=== PATIENT | female | born 1985 | race Caucasian/White ===

== ENCOUNTER 2018-03-21 08:00 | Outpatient (CLI) | payer BC | END 2018-03-21 23:59 | LOC: LAB.R 08:00 | PROVIDERS: ATTEND Nurse Practitioner Gerontology | DX: R10.9 Unspecified abdominal pain (principal); K92.1 Melena | CPT/HCPCS: 83013 ==

== ENCOUNTER 2018-12-19 08:00 | Outpatient (CLI) | payer BC ==
[2018-12-19 12:15] LABS: BASOPHILS # (AUTO) 0.1 10^3/uL (0.0-0.1); BASOPHILS % (AUTO) 1.4 %; EOSINOPHILS # (AUTO) 0.1 10^3/uL (0.0-0.7); EOSINOPHILS % (AUTO) 1.7 %; HGB - HEMOGLOBIN 12.8 g/dL (12.0-16.0); LYMPHOCYTES # (AUTO) 1.6 10^3/uL (1.5-3.5); LYMPHOCYTES % (AUTO) 45.4 %; MEAN CORPUSCULAR HEMOGLOBIN 31.3 pg (27.0-31.0); MEAN CORPUSCULAR VOLUME 94.9 fL (81.0-99.0); MEAN PLATELET VOLUME 9.7 fL (7.9-10.8); MONOCYTES # (AUTO) 0.5 10^3/uL (0.0-1.0); MONOCYTES % (AUTO) 13.3 %; NEUTROPHILS # (AUTO) 1.4 10^3/uL (1.5-6.6); NEUTROPHILS % (AUTO) 38.2 %; PLT - PLATELET COUNT 213 10^3/uL (130-450); RED BLOOD COUNT 4.09 10^6/uL (4.20-5.40); RED CELL DISTRIBUTION WIDTH 11.9 % (12.0-15.0); WHITE BLOOD COUNT 3.6 x10^3/uL (4.8-10.8)
[2018-12-19 14:09] LABS: % IRON SATURATION 23 % (20-50); ALBUMIN 4.3 g/dL (3.2-5.5); ALBUMIN/GLOBULIN RATIO 1.8 (1.0-2.2); ALKALINE PHOSPHATASE 37 IU/L (42-121); ALT ALANINE AMINOTRANSFERASE 16 IU/L (10-60); AST ASPARTATE AMINOTRANSFERASE 17 IU/L (10-42); BILIRUBIN,TOTAL 0.8 mg/dL (0.2-1.0); BUN - BLOOD UREA NITROGEN 11 mg/dL (6-20); CALCIUM 9.3 mg/dL (8.5-10.3); CARBON DIOXIDE - CO2 25 mmol/L (21-32); CHLORIDE 102 mmol/L (101-111); CHOL/HDL RATIO 3.2 (<4.4); CHOLESTEROL 201 mg/dL; CREATININE 0.6 mg/dL (0.4-1.0); FERRITIN 20.6 ng/mL (11.0-306.8); GFR - MDRD 114 (>89); GLUCOSE 88 mg/dL (70-100); HDL CHOLESTEROL 62 mg/dL; IRON 69 ug/dL (28-170); LDL CHOLESTEROL,CALCULATED 128 mg/dL; LDL/HDL RATIO 2.1 (<4.4); SODIUM 136 mmol/L (135-145); TOTAL IRON BINDING CAPACITY 297 ug/dL (250-450); TOTAL PROTEIN 6.7 g/dL (6.7-8.2); TRANSFERRIN 212 mg/dL (192-382); VLDL CHOLESTEROL 11 mg/dL
== END 2018-12-19 23:59 | disposition home or self-care (01) ==
LOC: LAB.N 08:00
PROVIDERS: ATTEND Nurse Practitioner Gerontology
DX: Z13.9 Encounter for screening, unspecified (principal)
CPT/HCPCS: 36415; 80053; 80061; 82306; 82607; 82728; 83540; 83721; 84443; 84466; 85025

== ENCOUNTER 2021-05-26 08:00 | Outpatient (CLI) | payer BC, OTHER ==
[2021-05-26 21:20] LABS: BASOPHILS % (AUTO) 0.8 %; EOSINOPHILS # (AUTO) 0.1 10^3/uL (0.0-0.7); EOSINOPHILS % (AUTO) 1.6 %; HCT - HEMATOCRIT 37.1 % (37.0-47.0); HGB - HEMOGLOBIN 12.6 g/dL (12.0-16.0); LYMPHOCYTES # (AUTO) 1.6 10^3/uL (1.5-3.5); LYMPHOCYTES % (AUTO) 30.6 %; MEAN CORPUSCULAR VOLUME 94.2 fL (81.0-99.0); MEAN PLATELET VOLUME 10.1 fL (7.9-10.8); MONOCYTES # (AUTO) 0.5 10^3/uL (0.0-1.0); MONOCYTES % (AUTO) 9.1 %; NEUTROPHILS % (AUTO) 57.7 %; PLT - PLATELET COUNT 275 10^3/uL (130-450); RED BLOOD COUNT 3.94 10^6/uL (4.20-5.40); RED CELL DISTRIBUTION WIDTH 11.9 % (12.0-15.0); WHITE BLOOD COUNT 5.2 x10^3/uL (4.8-10.8)
[2021-05-26 21:28] LABS: ALBUMIN 4.5 g/dL (3.2-5.5); ALBUMIN/GLOBULIN RATIO 1.7 (1.0-2.2); BILIRUBIN,TOTAL 1.2 mg/dL (0.2-1.0); CALCIUM 9.4 mg/dL (8.5-10.3); CREATININE 0.5 mg/dL (0.4-1.0); POTASSIUM 4.3 mmol/L (3.5-5.0); TOTAL PROTEIN 7.2 g/dL (6.7-8.2)
== END 2021-05-26 23:59 | disposition home or self-care (01) ==
LOC: LAB.N 08:00
PROVIDERS: ATTEND Family Medicine
DX: R00.2 Palpitations (principal)
CPT/HCPCS: 36415; 80053; 84484; 85025; 85651

== ENCOUNTER 2021-10-28 13:35 | Outpatient (CLI) | payer OTHER ==
[2021-10-28 17:56] LABS: BASOPHILS # (AUTO) 0.1 10^3/uL (0.0-0.1); EOSINOPHILS # (AUTO) 0.3 10^3/uL (0.0-0.7); EOSINOPHILS % (AUTO) 4.8 %; HCT - HEMATOCRIT 38.3 % (37.0-47.0); HGB - HEMOGLOBIN 12.7 g/dL (12.0-16.0); LYMPHOCYTES # (AUTO) 1.5 10^3/uL (1.5-3.5); LYMPHOCYTES % (AUTO) 28.7 %; MEAN CORPUSCULAR HEMOGLOBIN 31.2 pg (27.0-31.0); MEAN CORPUSCULAR HGB CONC 33.2 g/dL (32.0-36.0); MEAN CORPUSCULAR VOLUME 94.1 fL (81.0-99.0); MEAN PLATELET VOLUME 10.3 fL (7.9-10.8); MONOCYTES # (AUTO) 0.5 10^3/uL (0.0-1.0); MONOCYTES % (AUTO) 9.4 %; NEUTROPHILS # (AUTO) 2.9 10^3/uL (1.5-6.6); NEUTROPHILS % (AUTO) 55.9 %; PLT - PLATELET COUNT 253 10^3/uL (130-450); RED BLOOD COUNT 4.07 10^6/uL (4.20-5.40); RED CELL DISTRIBUTION WIDTH 11.9 % (12.0-15.0); WHITE BLOOD COUNT 5.2 x10^3/uL (4.8-10.8)
[2021-10-28 18:03] LABS: CHOL/HDL RATIO 3.6 (<4.4); CHOLESTEROL 198 mg/dL; HDL CHOLESTEROL 55 mg/dL; LDL CHOLESTEROL,CALCULATED 129 mg/dL; LDL/HDL RATIO 2.3 (<4.4); TRIGLYCERIDES 72 mg/dL; VLDL CHOLESTEROL 14 mg/dL
[2021-10-28 18:15] LABS: THYROID STIMULATING HORMONE 2.27 uIU/mL (0.34-5.60)
== END 2021-10-28 13:36 | disposition home or self-care (01) ==
LOC: LAB.N 13:35
PROVIDERS: ATTEND Nurse Practitioner
DX: R53.83 Other fatigue (principal); Z13.220 Encounter for screening for lipoid disorders
CPT/HCPCS: 36415; 80061; 83721; 84443; 85025

== ENCOUNTER 2023-07-19 08:00 | Outpatient (CLI) | payer OTHER ==
[2023-07-19 16:31] LABS: BILIRUBIN,URINE NEGATIVE (NEGATIVE); GLUCOSE, URINE (UA) NEGATIVE (NEGATIVE); KETONES,URINE (UA) 15 mg/dL (NEGATIVE); LEUKOCYTE ESTERASE, URINE NEGATIVE (NEGATIVE); NITRITE,URINE NEGATIVE (NEGATIVE); OCCULT BLOOD,URINE TRACE-INTA (NEGATIVE); PROTEIN,URINE NEGATIVE (NEGATIVE); UROBILINOGEN,URINE 0.2 (NORMAL) E.U./dL (NORMAL)
[2023-07-19 16:34] LABS: CLARITY,URINE CLOUDY (CLEAR)
[2023-07-19 16:40] LABS: AMORPHOUS SEDIMENT,UR Marked /LPF; BACTERIA,URINE Rare /HPF (None Seen); RBC,URINE 0-5 /HPF (0-5); SQUAMOUS EPITHELIAL CELL,UR RARE Squamous (<= Few); WBC,URINE 0-3 /HPF (0-5)
[2023-07-19 16:41] LABS: CRYSTALS,URINE 0-2 Calcium Oxalate /LPF
== END 2023-07-19 23:59 | disposition home or self-care (01) ==
LOC: LAB.WC 08:00
PROVIDERS: ATTEND Nurse Practitioner
DX: Z34.00 Encounter for supervision of normal first pregnancy, unspecified trimester (principal)
CPT/HCPCS: 81001; 87086

== ENCOUNTER 2023-07-30 17:06 | Outpatient (CLI) | payer OTHER ==
[2023-07-30 20:36] LABS: BASOPHILS % (AUTO) 0.5 %; EOSINOPHILS % (AUTO) 0.6 %; HCT - HEMATOCRIT 36.2 % (37.0-47.0); HGB - HEMOGLOBIN 11.9 g/dL (12.0-16.0); LYMPHOCYTES # (AUTO) 1.3 10^3/uL (1.5-3.5); LYMPHOCYTES % (AUTO) 19.5 %; MEAN CORPUSCULAR HEMOGLOBIN 30.5 pg (27.0-31.0); MEAN CORPUSCULAR HGB CONC 32.9 g/dL (32.0-36.0); MEAN CORPUSCULAR VOLUME 92.8 fL (81.0-99.0); MEAN PLATELET VOLUME 9.9 fL (7.9-10.8); MONOCYTES # (AUTO) 0.5 10^3/uL (0.0-1.0); MONOCYTES % (AUTO) 7.7 %; NEUTROPHILS # (AUTO) 4.6 10^3/uL (1.5-6.6); NEUTROPHILS % (AUTO) 71.5 %; PLT - PLATELET COUNT 278 10^3/uL (130-450); RED CELL DISTRIBUTION WIDTH 12.8 % (12.0-15.0); WHITE BLOOD COUNT 6.5 x10^3/uL (4.8-10.8)
[2023-07-30 20:38] LABS: BILIRUBIN,URINE NEGATIVE (NEGATIVE); GLUCOSE, URINE (UA) NEGATIVE (NEGATIVE); KETONES,URINE (UA) NEGATIVE (NEGATIVE); LEUKOCYTE ESTERASE, URINE SMALL (NEGATIVE); NITRITE,URINE NEGATIVE (NEGATIVE); OCCULT BLOOD,URINE NEGATIVE (NEGATIVE); PROTEIN,URINE NEGATIVE (NEGATIVE); UROBILINOGEN,URINE 0.2 (NORMAL) E.U./dL (NORMAL)
[2023-07-30 20:49] LABS: CLARITY,URINE HAZY (CLEAR)
[2023-07-30 20:59] LABS: BACTERIA,URINE Few /HPF (None Seen); RBC,URINE 0-5 /HPF (0-5); SQUAMOUS EPITHELIAL CELL,UR MANY Squamous (<= Few)
== END 2023-07-30 17:07 | disposition home or self-care (01) ==
LOC: LAB.N 17:06
PROVIDERS: ATTEND Nurse Practitioner
DX: Z34.00 Encounter for supervision of normal first pregnancy, unspecified trimester (principal); Z36.89 Encounter for other specified antenatal screening; R30.0 Dysuria
CPT/HCPCS: 36415; 81001; 85025; 86592; 86762; 86787; 86803; 86850; 86900; 86901; 87086; 87340; 87389

== ENCOUNTER 2023-08-01 08:00 | Outpatient (CLI) | payer OTHER ==
[2023-08-01 16:49] LABS: BILIRUBIN,URINE NEGATIVE (NEGATIVE); GLUCOSE, URINE (UA) NEGATIVE (NEGATIVE); KETONES,URINE (UA) NEGATIVE (NEGATIVE); LEUKOCYTE ESTERASE, URINE NEGATIVE (NEGATIVE); NITRITE,URINE NEGATIVE (NEGATIVE); OCCULT BLOOD,URINE TRACE-INTA (NEGATIVE); PROTEIN,URINE TRACE mg/dL (NEGATIVE); UROBILINOGEN,URINE 0.2 (NORMAL) E.U./dL (NORMAL)
[2023-08-01 17:01] LABS: CLARITY,URINE CLOUDY (CLEAR)
[2023-08-01 17:23] LABS: AMORPHOUS SEDIMENT,UR Marked /LPF; BACTERIA,URINE None Seen /HPF (None Seen); RBC,URINE 0-5 /HPF (0-5); SQUAMOUS EPITHELIAL CELL,UR RARE Squamous (<= Few); WBC,URINE 0-3 /HPF (0-5)
== END 2023-08-01 23:59 | disposition home or self-care (01) ==
LOC: LAB.WC 08:00
PROVIDERS: ATTEND Obstetrics & Gynecology
DX: R30.0 Dysuria (principal)
CPT/HCPCS: 81001; 87086

== ENCOUNTER 2023-08-02 19:49 | Outpatient (CLI) | payer OTHER ==
--- NOTE | 2023-08-03 09:40 | Ultrasound Report ---
PROCEDURE: OB 1st Trimester w/TV INDICATIONS: POSITIVE TEST OUTSIDE/PRIOR DATING DATA: Last menstrual period (LMP): 06/07/2023. LMP-based estimated date of delivery (TONNY): 03/13/2024. First dating scan (date and location): 08/02/2023. Estimated date of delivery (TONNY) from first dating scan: 03/10/2024. TECHNIQUE: Real-time scanning was performed of the fetus and maternal pelvic organs, with image documentation. Endovaginal scanning was also performed to better visualize the fetus and maternal ovaries. COMPARISON: None. FINDINGS: Intrauterine gestational sac present. Embryo: There is a single gestational sac with a single pole. Average crown-rump length is 19. 2 mm corresponding to an 8 week 3 day +/- day gestation. A normal yolk sac is present. Heart rate: 162 bpm. Other: A small subchorionic hemorrhage measures 1.5 cm, encompassing less than 5% of sac circumferenc e. Measurement variability in dating: +/- 4 weeks by LMP, +/- 7 days by mean sac diameter (use before 6 weeks gestation if crown-rump length not able to be measured), +/- 5 days by crown-rump length (6-12 weeks gestation). Maternal organs: Anteverted uterus. Closed cervix. Right ovary appears normal. The left ovary contain s 2 thick-walled involuting corpus luteum cysts. No free pelvic fluid. IMPRESSION: Single living intrauterine gestation. Gestational age by crown-rump length is 8 weeks 3 days, in good agreement with the clinical gestation al age. Reviewed by: Lynda Rader MD on 08/03/2023 9:39 AM PDT Approved by: Lynda Rader MD on 08/03/2023 9:39 AM PDT Station ID: [id number]
== END 2023-08-02 19:50 | disposition home or self-care (01) ==
LOC: DI 19:49
PROVIDERS: ATTEND Nurse Practitioner
DX: Z34.01 Encounter for supervision of normal first pregnancy, first trimester (principal)

== ENCOUNTER 2023-08-14 08:00 | Outpatient (CLI) | payer OTHER ==
[2023-08-14 21:39] LABS: CHLAMYDIA TRACHOMATIS DNA NEGATIVE (NEGATIVE); NEISSERIA GONORRHOEAE DNA NEGATIVE (NEGATIVE)
[2023-08-14 22:23] LABS: BACTERIAL VAGINOSIS DNA NEGATIVE (NEGATIVE); CANDIDA GLABRATA DNA NEGATIVE (NEGATIVE); CANDIDA GROUP DNA NEGATIVE (NEGATIVE); CANDIDA KRUSEI DNA NEGATIVE (NEGATIVE); TRICHOMONAS VAGINALIS DNA NEGATIVE (NEGATIVE)
== END 2023-08-14 23:59 | disposition home or self-care (01) ==
LOC: LAB.WC 08:00
PROVIDERS: ATTEND Nurse Practitioner
DX: Z11.3 Encounter for screening for infections with a predominantly sexual mode of transmission (principal); N89.8 Other specified noninflammatory disorders of vagina
CPT/HCPCS: 81514; 87491; 87591; 87661

== ENCOUNTER 2023-08-17 17:01 | Outpatient (CLI) | payer OTHER ==
[2023-08-17 22:01] LABS: THYROID STIMULATING HORMONE 2.3 uIU/mL (0.34-5.60)
== END 2023-08-17 17:02 | disposition home or self-care (01) ==
LOC: LAB.N 17:01
PROVIDERS: ATTEND Nurse Practitioner
DX: R68.89 Other general symptoms and signs (principal)
CPT/HCPCS: 36415; 84443

== ENCOUNTER 2023-09-10 16:23 | Outpatient (CLI) | payer OTHER | END 2023-09-10 16:24 | disposition home or self-care (01) | LOC: LAB.N 16:23 | PROVIDERS: ATTEND Nurse Practitioner | DX: Z53.9 Procedure and treatment not carried out, unspecified reason (principal) ==

== ENCOUNTER 2023-09-11 16:38 | Outpatient (CLI) | payer OTHER | END 2023-09-11 16:39 | disposition home or self-care (01) | LOC: LAB 16:38 | PROVIDERS: ATTEND Nurse Practitioner | DX: O09.519 Supervision of elderly primigravida, unspecified trimester (principal) ==

== ENCOUNTER 2023-10-17 15:48 | Outpatient (CLI) | payer OTHER | END 2023-10-17 15:49 | disposition home or self-care (01) | LOC: LAB 15:48 | PROVIDERS: ATTEND Obstetrics & Gynecology | DX: Z36.89 Encounter for other specified antenatal screening (principal) | CPT/HCPCS: 36415; 82105 ==

== ENCOUNTER 2023-10-29 19:18 | Outpatient (CLI) | payer OTHER ==
--- NOTE | 2023-10-31 18:07 | Ultrasound Report ---
PROCEDURE: OB Anatomy Scan INDICATIONS: SUPERVISON OF OUTSIDE/PRIOR DATING DATA: Last menstrual period (LMP): 06/07/2023. LMP-based estimated date of delivery (TONNY): 03/13/2024. First dating scan (date and location): 08/02/2023. Estimated date of delivery (TONNY) from first dating scan: 03/10/2024. The below data below was generated using the ultrasound TONNY of 03/10/2024 TECHNIQUE: Real-time scanning was performed of the fetus, with image documentation and biometric measurements. COMPARISON: OB ultrasound 08/02/2023 FINDINGS: General: A single living intrauterine gestation is present. Presentation: Variable Placenta: Placental position is posterior, without previa. Amniotic fluid index: 13.7 cm, within normal limits for gestational age. heart rate: 141 beats per minute. Maternal cervical canal: 5.5 cm long; normal length is 2.5 cm or more. biometrics: Biparietal diameter: 4.9 cm 20 weeks 5 days 56% Head circumference: 19.1 cm 21 weeks 2 days 75th percentile Abdominal circumference: 17.7 cm 22 weeks 4 days 95th percentile Femur length: 3.6 cm 21 weeks 2 days 67th percentile Estimated gestational age from initial scan: 20 weeks 4 days Composite gestational age from present scan: 21 weeks 4 days Estimated weight and percentile: 461 g 97th percentile Measurement variability in biometric dating: +/- 10 days from 12-20 weeks gestation, +/- 2 weeks from 20-30 weeks gestation, +/- 3 weeks at 30 weeks gestation or later. Anatomic survey: Neuro: Ventricles are normal at less than 10 mm. Cisterna magna is normal at 3-11 mm. Cerebellum i s normal in size and morphology. Nuchal skin fold: Normal at less than 6 mm between 14 and 20 weeks gestational age. Face: Nose and lips, facial profile are normal. Spine: Suboptimally visualized. Heart: 4-chambered heart is present, with normal ventricular outflow tracts. Left ventricular echog enic focus is present. Diaphragm: Diaphragm is not well seen. Stomach: Left-sided stomach is present. Kidneys: No hydronephrosis. Normal is less than 5 mm in 2nd trimester, less than 7 mm in 3rd trimester. Cord: 3 vessel cord has orthotopic insertion. Bladder: Normal in size. Extremities: All 4 extremities are visualized. IMPRESSION: Single live intrauterine with gestational age today of 21 weeks 4 days. Left ventricular echogenic focus is present. This is overall nonspecific. Recommend interval follow-u p as well as correlation to genetic markers. Spine as well as diaphragm are poorly evaluated. Recommend interval follow-up for further evaluation. Reviewed by: Rosie Eddy MD on 10/31/2023 6:06 PM PDT Approved by: Rosie Eddy MD on 10/31/2023 6:06 PM PDT Station ID: [id number]
== END 2023-10-29 19:19 | disposition home or self-care (01) ==
LOC: DI 19:18
PROVIDERS: ATTEND Obstetrics & Gynecology
DX: O09.512 Supervision of elderly primigravida, second trimester (principal); Z3A.21 21 weeks gestation of pregnancy

== ENCOUNTER 2023-11-14 19:22 | Outpatient (CLI) | payer OTHER ==
--- NOTE | 2023-11-15 15:58 | Ultrasound Report ---
PROCEDURE: OB Follow up INDICATIONS: SUPERVISION OF OUTSIDE/PRIOR DATING DATA: Last menstrual period (LMP): 06/07/2023. LMP-based estimated date of delivery (TONNY): 03/13/2024. First dating scan (date and location): 08/02/2023. Estimated date of delivery (TONNY) from first dating scan: 03/10/2024. The below data below was generated using the working TONNY of 03/10/2024 TECHNIQUE: Ultrasound of the gravid uterus was performed and recorded. COMPARISON: None. FINDINGS: General: A single live intrauterine gestation is present. Presentation: Variable Placenta: Placental position is posterior without previa. Amniotic fluid index: 13.1 cm cm, 30.1 percentile for gestational age. heart rate: 129 beats per minute. Maternal cervical canal: 5.0 cm long; normal length is 2.5 cm or more. spine and diaphragm are within normal limits. The left ventricular echogenic focus not well see n due to positioning. Estimated gestational age by working dates: 33 week 2 day Other: Not applicable. IMPRESSION: Single live intrauterine consistent with 33 week 2 day gestation by current ultrasound diaphragm and spine are within normal limits. Left ventricular echogenic focus not imaged on the current exam due to position Reviewed by: Parminder Henderson MD on 11/15/2023 2:57 PM AMADOU Approved by: Parminder Henderson MD on 11/15/2023 2:57 PM AMADOU Station ID: [id number]
== END 2023-11-14 19:23 | disposition home or self-care (01) ==
LOC: DI 19:22
PROVIDERS: ATTEND Obstetrics & Gynecology
DX: O09.513 Supervision of elderly primigravida, third trimester (principal); Z3A.33 33 weeks gestation of pregnancy

== ENCOUNTER 2023-12-05 12:16 | Outpatient (CLI) | payer OTHER ==
[2023-12-05 13:39] LABS: HGB - HEMOGLOBIN 10.7 g/dL (12.0-16.0); MEAN CORPUSCULAR HEMOGLOBIN 32.3 pg (27.0-31.0); MEAN CORPUSCULAR HGB CONC 33.4 g/dL (32.0-36.0); MEAN CORPUSCULAR VOLUME 96.7 fL (81.0-99.0); MEAN PLATELET VOLUME 9.5 fL (7.9-10.8); RED BLOOD COUNT 3.31 10^6/uL (4.20-5.40); RED CELL DISTRIBUTION WIDTH 12.9 % (12.0-15.0); WHITE BLOOD COUNT 9.9 x10^3/uL (4.8-10.8)
[2023-12-05 14:44] LABS: ESTIMATED AVERAGE GLUCOSE 77 mg/dL (70-100); HEMOGLOBIN A1c% 4.3 % (4.27-6.07)
[2023-12-06 05:14] LABS: RPR Non Reactive (Non Reactive)
== END 2023-12-05 12:17 | disposition home or self-care (01) ==
LOC: LAB 12:16
PROVIDERS: ATTEND Nurse Practitioner
DX: O09.512 Supervision of elderly primigravida, second trimester (principal)
CPT/HCPCS: 36415; 82950; 83036; 85027; 86592

== ENCOUNTER 2023-12-10 08:15 | Outpatient (CLI) | payer OTHER ==
[2023-12-10 09:05] LABS: GTT GLUCOSE,FASTING 89 mg/dL (74-109)
== END 2023-12-10 08:16 | disposition home or self-care (01) ==
LOC: LAB 08:15
PROVIDERS: ATTEND Obstetrics & Gynecology
DX: O99.012 Anemia complicating pregnancy, second trimester (principal); D64.9 Anemia, unspecified; O99.810 Abnormal glucose complicating pregnancy
CPT/HCPCS: 36415; 82728; 82951; 82952

== ENCOUNTER 2024-01-06 09:48 | Emergency (ER) | payer OTHER ==
[2024-01-06 11:11] LABS: BASOPHILS % (AUTO) 0.3 %; EOSINOPHILS # (AUTO) 0.1 10^3/uL (0.0-0.7); HCT - HEMATOCRIT 31.8 % (37.0-47.0); HGB - HEMOGLOBIN 10.6 g/dL (12.0-16.0); LYMPHOCYTES # (AUTO) 0.8 10^3/uL (1.5-3.5); LYMPHOCYTES % (AUTO) 9.5 %; MEAN CORPUSCULAR HEMOGLOBIN 32.3 pg (27.0-31.0); MEAN CORPUSCULAR HGB CONC 33.3 g/dL (32.0-36.0); MEAN PLATELET VOLUME 9.4 fL (7.9-10.8); MONOCYTES # (AUTO) 0.8 10^3/uL (0.0-1.0); MONOCYTES % (AUTO) 8.8 %; NEUTROPHILS % (AUTO) 79.3 %; PLT - PLATELET COUNT 178 10^3/uL (130-450); RED BLOOD COUNT 3.28 10^6/uL (4.20-5.40); RED CELL DISTRIBUTION WIDTH 12.9 % (12.0-15.0); WHITE BLOOD COUNT 8.9 x10^3/uL (4.8-10.8)
--- NOTE | 2024-01-06 11:16 | ED Physician Documentation ---
History of Present Illness - Stated complaint Stated Complaint: RECTAL BLEED - Chief complaint Chief Complaint: Abd Pain - History obtained from History obtained from: Patient - Additonal information Additional information: This is a very nice 38-year-old female who is in her third trimester of who presents with hemorrhoids. The patient has had an external hemorrhoid for a while now and it was recently bothering her, and her OB recommended that she use witch tavo pads and then the patient also got some topical Preparation H [id number]. She has been using this And it provided some relief of her symptoms however yesterday she had a bowel movement and noticed a small amount of bleeding per rectum. This resolved on its own. And again today she had another bowel movement this morning and had increasing bleeding from the hemorrhoid. She held pressure to it and it eventually stopped. She states it has been mildly painful but she was mainly concerned about the bleeding. She states no other blood in her stool, no abdominal pain or cramping, no vaginal bleeding, loss of fluids, or urinary symptoms. She continues to feel good movement. She has no history of rectal bleeding or hemorrhoids. Review of Systems Constitutional: reports: Reviewed and negative Eyes: reports: Reviewed and negative Ears: reports: Reviewed and negative Nose: reports: Reviewed and negative Cardiac: reports: Reviewed and negative Respiratory: reports: Reviewed and negative GI: reports: Reviewed and negative, Other (Bleeding hemorrhoids) : reports: Now EGA Skin: reports: Reviewed and negative Musculoskeletal: reports: Reviewed and negative Neurologic: reports: Reviewed and negative Psychiatric: reports: Reviewed and negative Endocrine: reports: Reviewed and negative PD PAST MEDICAL HISTORY - Past Medical History Past Medical History: Yes Respiratory: Asthma GI: GERD - Past Surgical History Past Surgical History: No - Present Medications Home Medications: Ambulatory Orders Medication Instructions Recorded Confirmed Docusate Sodium 100Mg Capsule 100 mg PO DAILY #30 cap 01/06/24 [Colace 100Mg Capsule] Hydrocortisone/Lidocaine/Aloe 1 each RC BID PRN #1 kit 01/06/24 [Zayra-Ronnie 2-2% Kit] Phenylephrine HCl [Preparation H] 1 each RC PRN PRN #12 supp.rect 01/06/24 Pramoxine HCl [Proctofoam] 1 applic TP PRN PRN #15 gm 01/06/24 - Allergies Allergies/Adverse Reactions: Allergies Allergy/AdvReac Type Severity Reaction Status Date / Time No Known Drug Allergies Allergy Verified 01/06/24 09:57 - Social History Does the pt smoke?: No Smoking Status: Never smoker Does the pt drink ETOH?: No Does the pt have substance abuse?: No - Immunizations Immunizations are current?: Yes PD ED PE NORMAL - Vitals Vital signs reviewed: Yes - General General: Alert and oriented X 3, No acute distress, Well developed/nourished - HEENT HEENT: Atraumatic, Moist mucous membranes - Cardiac Cardiac: RRR, No murmur - Respiratory Respiratory: No respiratory distress, Clear bilaterally - Abdomen Abdomen: Normal bowel sounds, Soft, Other (Gravid abdomen) - Rectal Rectal: Other (There is an external hemorrhoid that is nontender to touch, not actively bleeding, nonthrombosed. No other Acute perirectal findings.) - Derm Derm: Normal color, No rash - Neuro Neuro: Alert and oriented X 3 Eye Opening: Spontaneous Motor: Obeys Commands Verbal: Oriented GCS Score: 15 Results - Vitals Vitals: Vital Signs - 24 hr 01/06/24 01/06/24 09:53 11:47 Temperature 36.7 C Heart Rate 100 73 Respiratory 18 16 Rate Blood Pressure 140/94 H 122/71 O2 Saturation 98 99 - Labs Labs: Laboratory Tests 01/06/24 01/06/24 11:08 11:08 WBC 8.9 RBC 3.28 L Hgb 10.6 L Hct 31.8 L MCV 97.0 MCH 32.3 H MCHC 33.3 RDW 12.9 Plt Count 178 MPV 9.4 Neut # (Auto) 7.0 H Lymph # (Auto) 0.8 L Camas # (Auto) 0.8 Eos # (Auto) 0.1 Baso # (Auto) 0.0 Absolute Nucleated RBC 0.00 Nucleated RBC % 0.0 Sodium 136 Potassium 4.0 Chloride 108 Carbon Dioxide 24 Anion Gap 4.0 L BUN 4 L Creatinine 0.4 L Estimated GFR (MDRD) 178 Glucose 74 Calcium 9.3 PD Medical Decision Making - ED course Complexity details: considered differential, d/w patient, d/w family ED course: 38-year-old female presented with rectal bleeding and concern for hemorrhoid. She is in her third trimester . On exam, the patient has an external hemorrhoid, not thrombosed, not actively bleeding. No other acute findings on physical exam. Her lab work today is reassuring, she is mildly anemic though this is unchanged from prior. I discussed with patient that typically initial treatment is supportive including additional topical rectal suppositories, and avoid straining, stay well-hydrated. I did advise that these can worsen during delivery due to the straining but typically they would not pursue surgical hemorrhoidectomy at this point in time. I have prescribed a couple of different medications both topically and rectal suppository to help with her symptoms, and to recommended that she start on docusate, stay well-hydrated and try to keep stool very soft to avoid any straining at all. I put in no surgical consult for follow-up if needed if no improvement. I discussed return precautions if worsening symptoms. Departure - Departure Disposition: Home, Self Care Clinical Impression: External hemorrhoid, bleeding Condition: Good Instructions: ED Hemorrhoids, ED Hematochezia Stable Follow-Up: Surgical Care [Provider Group] Prescriptions: Hydrocortisone/Lidocaine/Aloe [Zayra-Ronnie 2-2% Kit] 1 each RC BID PRN #1 kit PRN Reason: Hemorrhoids Docusate Sodium 100Mg Capsule [Colace 100Mg Capsule] 100 mg PO DAILY #30 cap Phenylephrine HCl [Preparation H] 1 each RC PRN PRN #12 supp.rect PRN Reason: Hemorrhoids Pramoxine HCl [Proctofoam] 1 applic TP PRN PRN #15 gm PRN Reason: Hemorrhoids Comments: In general, we treat hemorrhoids supportively with medication to reduce pain and inflammation as well as diet and hydration to avoid constipation, and have also started you on docusate to soften your stools. I have ordered a number of different medications, most of which are available [id number], for the treatment of hemorrhoids. I recommend that you use the suppository as well as a topical medication to get the most relief. Continue to use the witch tavo pads that you have been prescribed and if the bleeding recurs, hold pressure until it stops. Your blood work today is reassuring. Please continue follow-up with your OB and you can make an appointment with general surgery if the hemorrhoids are still bothersome. Forms: PCP List Discharge Date/Time: 01/06/24 11:48
[2024-01-06 11:27] LABS: CALCIUM 9.3 mg/dL (8.5-10.3); CREATININE 0.4 mg/dL (0.6-1.3)
[2024-01-06 15:23] VITALS: BP 122/71; O2SAT 99
== END 2024-01-06 11:48 | disposition home or self-care (01) ==
LOC: ED 09:48
DX: O22.43 Hemorrhoids in pregnancy, third trimester (principal); Z3A.00 Weeks of gestation of pregnancy not specified
CPT/HCPCS: 36415; 80048; 85025; 99283

== ENCOUNTER 2024-03-11 23:04 | Inpatient (IN) ==
[2024-03-11] MEDS ORDERED: OXYTOCIN 10 UNIT/ML VIAL IM PRN (23:38)
[2024-03-11] MEDS ORDERED: TRANEXAMIC ACID IN NACL 1,000 MG/100 ML BAG IV PRN (23:38)
[2024-03-11] MEDS ORDERED: miSOPROStoL 200 MCG TABLET BC PRN (23:38)
[2024-03-11] MEDS ORDERED: TERBUTALINE 1 MG/ML VIAL SUBQ PRN (23:38)
[2024-03-11] MEDS ORDERED: fentaNYL 100 MCG/2 ML VIAL IVP PRN (23:38)
[2024-03-11] MEDS ORDERED: hydrALAZINE INJ 20 MG/ML VIAL IVP PRN (23:38)
[2024-03-11] MEDS ORDERED: NIFEdipine 10 MG CAPSULE PO PRN (23:38)
[2024-03-11] MEDS ORDERED: LABETALOL 20 MG/4 ML SYRINGE IVP PRN ×3 (23:38)
[2024-03-11] MEDS ORDERED: METHYLERGONOVINE 0.2 MG/ML VIAL IM PRN (23:38)
[2024-03-11] MEDS ORDERED: OXYTOCIN/SODIUM CHLORIDE 500 ML IV PRN (23:38)
[2024-03-11] MEDS ORDERED: miSOPROStoL 200 MCG TABLET PR PRN (23:38)
[2024-03-11] MEDS ORDERED: lidocaine 1% 20 ML MDV ID PRN (23:38)
[2024-03-12 00:21] LABS: BASOPHILS % (AUTO) 0.2 %; EOSINOPHILS % (AUTO) 0.9 %; HGB - HEMOGLOBIN 11.9 g/dL (12.0-16.0); LYMPHOCYTES % (AUTO) 9.9 %; MEAN CORPUSCULAR HEMOGLOBIN 33.1 pg (27.0-31.0); MEAN CORPUSCULAR HGB CONC 33.1 g/dL (32.0-36.0); MEAN PLATELET VOLUME 10.5 fL (7.9-10.8); MONOCYTES % (AUTO) 8.9 %; NEUTROPHILS # (AUTO) 8.2 10^3/uL (1.5-6.6); NEUTROPHILS % (AUTO) 79.3 %; PLT - PLATELET COUNT 190 10^3/uL (130-450); RED CELL DISTRIBUTION WIDTH 12.9 % (12.0-15.0); WHITE BLOOD COUNT 10.4 x10^3/uL (4.8-10.8)
[2024-03-12 00:22] LABS: EOSINOPHILS # (AUTO) 0.1 10^3/uL (0.0-0.7); MONOCYTES # (AUTO) 0.9 10^3/uL (0.0-1.0)
--- NOTE | 2024-03-12 00:22 | HISTORY & PHYSICAL EXAMINATION ---
Admit History : 1 Care: positive [facility] Risk/History: positive Other (asthma, well controlled. ) Complications This : positive Other (large baby. 38 yo. failed 1 hr glucose, 3 hr normal. anemia earlier in , now resolved. ) Smoking Status: Never smoker Mother's Labs Mother's Blood Type: positive O Mother's RH: positive Positive GBS: positive Group B Step Negative Rubella Status: positive Non-immune Other Maternal History Other Maternal History: G1 at 39 w 6 days presents with SROM at 10 pm. more contractions than usual before that. baby active. no headache. swelling is better than last week. Dr. Ricks checked her today in office and she was 1 cm. unable to do membrane sweep. She declined induction at that time. last ultrasound 02/07/24: biometrics: Biparietal diameter: 9.09 cm, 36 weeks, 6 days, 90.1% Head circumference: 33.77 cm, 38 weeks, 5 days, 91.9% Abdominal circumference: 33.15 cm, 37 weeks, 0 day, 93.9% Femur length: 6.19 cm, 35 weeks, 3 days, 48.2% Estimated gestational age from initial scan: 35 weeks, 2 days Composite gestational age from present scan: 37 weeks, 0 day Estimated weight and percentile: 3042.6 g, 87.3% Maternal Health History Pre- Weight: 153 lb Height: 5 ft 5.5 in Pre- BMI: 25.0 Expected Delivery Route/Plan vaginal delivery. induction 39-40 weeks given AMA Specific Issues/Plans Problems: AMA, nulliparous, taking low-dose aspirin since 12 weeks Intracardiac echogenic focus -Low risk NIPT, no further testing indicated Asthma: No recent exacerbations, but taking albuterol and Symbicort Anemia of : Taking iron supplementation, most recent H/H: 10.8/32.8% /19- 9.4 LMP:06/07/2023 TONNY by LMP: 08/02/2023/8+3/C/W dates (TONNY by u/s: 03/10/24) Final TONNY: 03/13/2024 FOB: Shay Delaney. 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 Pre- Weight: 153 BMI: 25.20 Blood type: O+ Antibody: Negative CBC: PLT 278 HCT 36.2 HGB 11.9 RUB: Immune VZV: Immune HBsAg: Negative HepC: NR RPR/AB-EIA: NR HIV: NR PAP: 08/14/23 GC/CT: 08/14/23 HSV: denies Genetic testin09/11/2023 MaterniT 21- Negative AFP negative Covid: 01/15. Flu: 01/15 FAS: 10/28 spine not well seen, 11/13 normal Placenta: posterior w/o previa Cord: 3VC MERRILL: WNL EFW: 97%ile 50gm OGCT: 161 3HR GTT: 89 109, 120, 56 TDAP:12/18 Breast Pump: 12/04 Compression socks- 12/18 faxed 3rd trimester H/H PLT 199 HCT 32.0 HGB 10.7 RSV: 01/29 GBS:Negative Delivery plan: Contraception:Condoms. HPI Diagnosis/Indication for NST: Other (PROM at term) Current : Vital Signs Temperature 36.5 C 03/11/24 23:15 Pulse Rate 91 H 03/11/24 23:15 Respiratory Rate 18 03/11/24 23:15 Blood Pressure 133/90 H 03/11/24 23:15 NST Procedure NST Procedure: Reactive for of 32 weeks gestation or more. NST tracing contains at least two heart rate accelerations that are at least 15 beats per minute above the baseline rate and lasting at least 15 seconds from onset to return to baseline within a twenty minute period. Results and Plan Findings/Impression: reactive NST Plan: admit for delivery Meds/Allgy Home Medications Ambulatory Orders Medication Instructions Recorded Confirmed lidocaine 2 %-hydrocortisone 2 1 ea RC BID PRN Hemorrhoids #1 kit 01/06/24 03/11/24 %-aloe vera rectal kit (Zayra-Ronnie) albuterol sulfate 90 mcg/actuation 2 puff inhalation Q4H PRN 01/29/24 03/11/24 aerosol inhaler (Proventil HFA) budesonide-formoterol HFA 80 1 inh inhalation BID 01/29/24 03/11/24 mcg-4.5 mcg/actuation aerosol inhaler (Symbicort) ferrous sulfate 325 mg (65 mg 325 mg PO QDAY 01/29/24 03/11/24 iron) tablet (Feosol) vits no.126-ferrous fum tab PO QDAY 01/29/24 03/11/24 28 mg iron-folic acid 800 mcg tablet (Classic ) aspirin 81 mg tablet,delayed 81 mg PO QDAY 01/30/24 03/11/24 release (Adult Aspirin Regimen) Lactobacillus combo no.23 14 cell PO 02/29/24 03/11/24 billion cell capsule (Robert Probiotic) omeprazole 20 mg capsule,delayed 20 mg PO QDAY 02/29/24 03/11/24 release Allergies Allergies Allergy/AdvReac Type Severity Reaction Status Date / Time No Known Drug Allergies Allergy Verified 02/21/24 15:56 [facility] Medical History Medical History (Updated 03/12/24 @ 00:41 by Yue Ray MD) Dermatofibroma (11/01/17) Benign paroxysmal positional vertigo (10/13/21) COVID-19 asthma worse since then Chronic low back pain (03/01/21) History of gluten intolerance (01/09/22) Lactose intolerance (03/01/21) Asthma exacerbation (12/23/22) Abdominal pain (11/22/21) Social History Social History (Updated 03/12/24 @ 00:52 by Yue Ray MD) Smoking Status: Never smoker Do you dip or chew tobacco?: No Living arrangement: At home Marital Status: Living Condition: With spouse/s.o. 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 [employer] Status: Full Code Review of Systems Eyes Denies: Blurry vision or Floaters Cardiovascular Reports: edema (improved from 1 week ago); Denies: shortness of breath with exertion Respiratory Denies: Shortness of breath Gastrointestinal Denies: Nausea or Vomiting Neurological Denies: Headache Physical Abdominal Exam Vital Signs: Temp Pulse Resp BP 36.5 C 91 H 18 133/90 H 03/11/24 23:15 03/11/24 23:15 03/11/24 23:15 03/11/24 23:15 Contraction Frequency (min/apart): irregular Contraction Intensity: positive Mild Uterine Resting Tone: positive Soft Monitoring Heart Rate Baseline: 120 Strip Review: positive Category I Presentation Presentation: positive Vertex (confirmed by ultrasound tonight.) Vaginal Exam Membranes: positive Membranes ruptured Dilation (in cm): by rn. Unable to reach internal os. Cervical Position: positive Posterior Speculum Exam Speculum Exam Performed: positive No Findings: positive Gross leak Plan for Labor Plan For Labor I expect patient to be DC'd or transferred within 96 hours.: Yes Plan for Labor: augment in am if no spontaneous labor. watch bps. MTP is 0.2 so < 0.3. CMP and plt are normal. OK for intermittent monitoring before lab starts if bp stay normal. Conclusion/Plan Problem List (1) PROM with onset of labor within 24 hours, [facility] Plan: offered augmentation now or wait until morning. She would like to wait until morning. if no labor by morning recommend induction agents. (2) Elderly primigravida, unspecified as to episode of care: Qualifiers: Trimester: third trimester Qualified Code(s): O09.513 - Supervision of elderly primigravida, third trimester (3) Elevated blood pressure reading without diagnosis of hypertension: Plan: labs ordered. follow closely. swelling is better. no other sx. (4) Asthma: Plan: stable at this time and thru . (5) Anemia complicating : Plan: resolved now. but has macrocytosis. check b12. Qualifiers: Trimester: third trimester Qualified Code(s): O99.013 - Anemia complicating , third trimester (6) Macrocytosis: Plan: check b12.
[2024-03-12 00:31] LABS: CREATININE,URINE 35.5 mg/dL; PROTEIN/CREATININE RATIO,URINE 0.2 (<=0.2)
[2024-03-12 00:36] LABS: ALBUMIN 3.6 g/dL (3.2-5.5); ALBUMIN/GLOBULIN RATIO 1.2 (1.0-2.2); BILIRUBIN,TOTAL 0.1 mg/dL (0.2-1.0); CALCIUM 9.6 mg/dL (8.5-10.3); CREATININE 0.4 mg/dL (0.6-1.3); POTASSIUM 4.1 mmol/L (3.5-4.5); TOTAL PROTEIN 6.5 g/dL (6.4-8.9)
[2024-03-12] MEDS ORDERED: ALBUTEROL SULFATE INH PRN (00:38)
[2024-03-12] MEDS ORDERED: [UNRECOGNIZED DRUG - OTHER] INH PRN (00:38)
[2024-03-12] MEDS ORDERED: NON FORMULARY MED (Omeprazole 20 mg capsule,delayed release(DR/EC)) PO SCH (00:45)
[2024-03-12] MEDS ORDERED: ALBUTEROL NEB 2.5 MG/3 ML INH PRN (01:37)
[2024-03-12] MEDS: PANTOPRAZOLE 40 MG TABLET PO SCH (08:25)
[2024-03-12] MEDS: SODIUM CHLORIDE FLUSH 0.9% 10 ML SYRINGE IVP PRN (08:26)
[2024-03-12] MEDS: SODIUM CHLORIDE FLUSH 0.9% 10 ML SYRINGE IVP SCH (08:51)
[2024-03-12] MEDS: BUDESONIDE 0.5 MG/2 ML NEB INH SCH (08:52)
[2024-03-12] MEDS: FORMOTEROL FUMARATE NEB 20 MCG/2 ML INH SCH (08:52)
--- NOTE | 2024-03-12 08:56 | PROVIDER PROGRESS NOTE ---
Labor Progress Note Uterine Monitoring Uterine Monitoring Mode: positive External toco Contraction Frequency (min/apart): Quiescent Monitoring Monitor Mode: positive External ultrasound Heart Rate Baseline: 120 Heart Rate Variability: positive Moderate (6-25 bmp) Accelerations: positive Present, 15x15 Decelerations: positive None Strip Review: positive Category I Labor Progress Note Labor Progress Note/Additional Text: Had some prodromal contractions, but seems to have spaced out. Will finish breakfast, go for walk, use ball, and if not regularly mariaa, agreeable to starting oxytocin. Discussed risks and benefits and titration to assure maternal and wellbeing, but also to prevent infection for prolonged rupture.
[2024-03-12] MEDS ORDERED: BUDESONIDE FORMOTEROL INH SCH (09:00)
[2024-03-12] MEDS ORDERED: [UNRECOGNIZED DRUG - OTHER] INH SCH (09:00)
[2024-03-12] MEDS: LACTATED RINGERS 1,000 ML IV PRN (10:10)
[2024-03-12] MEDS: OXYTOCIN/SODIUM CHLORIDE 500 ML IV SCH (10:10)
--- NOTE | 2024-03-12 10:42 | PHARMACY PROGRESS NOTE ---
Best Possible Medication History Admit Date and Time: 03/11/24 2346 Home Medications Medication Instructions Recorded Confirmed Type ferrous sulfate 325 mg (65 mg 325 mg PO QDAY 01/29/24 03/12/24 History iron) tablet (Feosol) vits no.126-ferrous fum 1 tab PO QDAY 01/29/24 03/12/24 History 28 mg iron-folic acid 800 mcg tablet (Classic ) omeprazole 20 mg capsule,delayed 20 mg PO QDAY 02/29/24 03/12/24 History release albuterol sulfate 90 mcg/actuation 2 inh inhalation Q4H PRN shortness 03/12/24 03/12/24 History aerosol inhaler (Ventolin HFA) of breath or wheezing budesonide-formoterol HFA 160 2 puff inhalation BID 03/12/24 03/12/24 History mcg-4.5 mcg/actuation aerosol inhaler lactobacillus comb no.10 20 20,000 mmu cells PO DAILY 03/12/24 03/12/24 History billion cell capsule (Probiotic) Processed by: Pharmacy (Medication Reconciliation completed by Boat HandMara) Medications reviewed in ED?: No Medication History completed: Yes Patient Interview: Completed Secondary Source(s): Insurance records [facility] Statement: As the person ultimately responsible for medication therapy, providers are able to order a medication from an existing home medication list in [facility] via the "Reconcile Routine" prior to Confirmation of that medication by pit crew support worker. Such practice is discouraged except when the physician, in their clinical judgment, deems that a medical need exists for a medication without regard to previous use.
--- NOTE | 2024-03-12 15:55 | ANESTHESIA PROCEDURE NOTE ---
Pre-Anesthesia VS, & Labs Diagnosis Surgical Diagnosis:: labor pain Procedure Procedure: labor epidural Vitals Vital Signs: Temp Pulse Resp BP 36.5 C 95 H 18 133/90 H 03/12/24 00:20 03/12/24 00:20 03/12/24 00:20 03/11/24 23:15 NPO NPO: Other Is Patient ?: Yes Lab Results Current Lab Results: Laboratory Tests 03/12/24 00:01: WBC 10.4, RBC 3.60 L, Hgb 11.9 L, Hct 36.0 L, MCV 100.0 H, MCH 33.1 H, MCHC 33.1, RDW 12.9, Plt Count 190, MPV 10.5, Neut # (Auto) 8.2 H, Lymph # (Auto) 1.0 L, [place] # (Auto) 0.9, Eos # (Auto) 0.1, Baso # (Auto) 0.0, Absolute Nucleated RBC 0.00, Nucleated RBC % 0.0, Sodium 135, Potassium 4.1, Chloride 105, Carbon Dioxide 23, Anion Gap 7.0, BUN 5 L, Creatinine 0.4 L, Estimated GFR (MDRD) 178, Glucose 100, Uric Acid 3.2, Calcium 9.6, Total Bilirubin 0.1 L, AST 11, ALT 8 L, Alkaline Phosphatase 91, Total Protein 6.5, Albumin 3.6, Globulin 2.9, Albumin/Globulin Ratio 1.2, Vitamin B12 124 L, Blood Type O POSITIVE, Antibody Screen NEGATIVE 03/12/24 00:01 03/12/24 00:01 Meds/Allgy Home Medications Ambulatory Orders Medication Instructions Recorded Confirmed ferrous sulfate 325 mg (65 mg 325 mg PO QDAY 01/29/24 03/12/24 iron) tablet (Feosol) vits no.126-ferrous fum 1 tab PO QDAY 01/29/24 03/12/24 28 mg iron-folic acid 800 mcg tablet (Classic ) omeprazole 20 mg capsule,delayed 20 mg PO QDAY 02/29/24 03/12/24 release albuterol sulfate 90 mcg/actuation 2 inh inhalation Q4H PRN shortness 03/12/24 03/12/24 aerosol inhaler (Ventolin HFA) of breath or wheezing budesonide-formoterol HFA 160 2 puff inhalation BID 03/12/24 03/12/24 mcg-4.5 mcg/actuation aerosol inhaler lactobacillus comb no.10 20 20,000 mmu cells PO DAILY 03/12/24 03/12/24 billion cell capsule (Probiotic) Allergies Allergies Allergy/AdvReac Type Severity Reaction Status Date / Time No Known Drug Allergies Allergy Verified 03/12/24 08:57 [facility] Medical History Medical History (Updated 03/12/24 @ 00:41 by Yue Ray MD) Dermatofibroma (11/01/17) Benign paroxysmal positional vertigo (10/13/21) COVID-19 asthma worse since then Chronic low back pain (03/01/21) History of gluten intolerance (01/09/22) Lactose intolerance (03/01/21) Asthma exacerbation (12/23/22) Abdominal pain (11/22/21) Social History Social History (Updated 03/12/24 @ 00:52 by Yue Ray MD) Smoking Status: Never smoker Do you dip or chew tobacco?: No Living arrangement: At home Marital Status: Living Condition: With spouse/s.o. 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 She would like to wait until morning. if no labor by morning recommend induction agents. (2) Elderly primigravida, unspecified as to episode of care: Qualifiers: Trimester: third trimester Qualified Code(s): O09.513 - Supervision of elderly primigravida, third trimester (3) Elevated blood pressure reading without diagnosis of hypertension: Plan: labs ordered. follow closely. swelling is better. no other sx. (4) Asthma: Plan: stable at this time and thru . (5) Anemia complicating : Plan: resolved now. but has macrocytosis. check b12. Qualifiers: Trimester: third trimester Qualified Code(s): O99.013 - Anemia complicating , third trimester (6) Macrocytosis: Plan: check b12. Plan Anesthesia Type: Epidural Consent for Procedure(s) Verified and Reviewed: Yes Code Status: Attempt Resuscitation ASA Classification ASA classification: 2-Mild systemic disease Is this case an emergency?: No
[2024-03-12] MEDS ORDERED: LIDOCAINE 2%-EPI 1:100000 20 ML MDV ONE (16:38)
[2024-03-12] MEDS ORDERED: ROPIVACAINE 0.2% 200 MG/100 ML BAG EP ONE (16:38)
[2024-03-12] MEDS ORDERED: diphenhydrAMINE INJ 50 MG/ML VIAL IVP PRN (17:39)
[2024-03-12] MEDS ORDERED: NALOXONE 0.4 MG/ML VIAL IVP PRN (17:39)
[2024-03-12] MEDS ORDERED: METOCLOPRAMIDE 10 MG/2 ML VIAL IVP PRN (17:39)
[2024-03-12] MEDS ORDERED: NALBUPHINE 10 MG/ML AMP IVP PRN (17:39)
[2024-03-12] MEDS ORDERED: LIDOCAINE-MPF 1% 5 ML VIAL ONE (17:56)
--- NOTE | 2024-03-12 18:23 | PROVIDER PROGRESS NOTE ---
Progress Note Progress Note Progress Note: Patient received epidural for pain control. Now resting comfortably. Cervical exam 6/80/-1. FHT: 120 beats per baseline, moderate variability, accelerations present, no decelerations. Category 1. [place]: Every 2 to 3 minutes. Oxytocin currently at 10 milliunits/min. Plan for recheck in 2 hours. Anticipate .
[2024-03-12] MEDS: ePHEDrine 50 MG/ML VIAL IVP PRN (18:39)
--- NOTE | 2024-03-12 23:36 | PROVIDER PROGRESS NOTE ---
Progress Note Progress Note Progress Note: Patient checked and found to be complete and will start pushing. heart tracing 150 bpm baseline, moderate variability, accelerations present, intermittent variable decelerations. Category 2. Variable decelerations were more frequent, then spaced out, if returning while pushing, will place [facility] for amnioinfusion.
[2024-03-13] MEDS: ROPIVACAINE 0.2% 200 MG/100 ML BAG EP PRN (00:18)
--- NOTE | 2024-03-13 03:38 | PROVIDER PROGRESS NOTE ---
Progress Note Progress Note Progress Note: Pushing with patient intermittently, otherwise nurse pushing with patient. Contractions have spaced out, every 3 to 5 minutes, so increasing oxytocin. heart tracing overall reassuring with baseline of 135 bpm, moderate variability, accelerations present. Mild decelerations with pushing but with good recovery. Discussed prolonged second stage and that while some of this is the spacing of her contractions, we are longer than most. Discussed the risks of prolonged second stage for maternal and outcomes. Discussed increasing the oxytocin until contractions closer together to allow effective pushing, also discussed risk and benefits of vacuum-assisted delivery. head should come down a little more before I feel comfortable performing vacuum delivery. As heart tracing remains reassuring, can continue at this time. No signs of fever o r intraamniotic infection at this time.
[2024-03-13] MEDS: ONDANSETRON 4 MG/2 ML VIAL IVP PRN (03:39)
--- NOTE | 2024-03-13 05:00 | PROVIDER PROGRESS NOTE ---
Progress Note Progress Note Progress Note: Intermittent category 2 tracing, 135 beats minute baseline, moderate v ariability, accelerations present, intermittent variable decelerations. Patient requested break from pushing. Now restarting. If not making significant change in the near future, will likely proceed with section. EFW 3900 g. Making progress, but patient is tired. If able to assist with vacuum, will further discuss as well.
[2024-03-13] MEDS ORDERED: LIDOCAINE 2%-EPI 1:100000 20 ML MDV ONE (05:49)
--- NOTE | 2024-03-13 06:51 | DELIVERY NOTE ---
Delivery Note Labor Labor: positive Induced by oxytocin Infant Delivery Method Delivery Method: positive Vacuum assist Presentation Presentation: positive Vertex Nuchal Cord Nuchal Cord: positive None Vacuum Use Indication for Vacuum Use: positive Prolonged 2nd stage Type of Vacuum Cup: positive Cup: Rigid Laceration Laceration: positive 2nd degree Suture Suture Type: positive Vicryl Suture Size: positive 3-0 Delivery Outcome Delivery Outcome: positive Livebirth Aynor : positive Placed in direct skin contact with mother Aynor sex: positive Male Cord Cord: positive 3 vessels Placenta Placenta: positive Intact Estimated Blood Loss Estimated Blood Loss (in cc): 600 Delivery Comments (Free Text/Narrative) Delivery Comments (Free Text/Narrative): Preoperative Diagnoses Prolonged, prelabor rupture of membranes Advanced maternal age 40 weeks gestation Postoperative Diagnoses Same Delivery of live miller Status post vacuum-assisted vaginal delivery Summary Patient presented at 39 weeks gestation with prelabor rupture of membranes. She elected for 12 hours of expectant management, but did not have any significant contractions, so oxytocin was initiated. She progressed throughout the day with mostly category 1 tracing, however had occasional variable decelerations with a category 2 tracing. She progressed to complete and started pushing. While pushing, she had a prolonged course, and required oxytocin titration as her contractions had spaced out. She also asked for a break between pushing. Throughout the process we discussed vacuum assisted delivery and delivery. We also discussed the risks of prolonged second stage for mom and baby. Upon resumption of pushing, we agreed to attempt vacuum delivery. Delivery Summary: The patient was counseled on the risk of vacuum delivery. We discussed a trial of vacuum delivery with no significant descent we would proceed with section. We discussed that we would give up if no descent occurred after 2 tractions, if delivery did not occur after 4 tractions or if the vacuum detached more than twice. We discussed that we would perform a section if the vacuum was unsuccessful. We discussed the risk of cephalhematoma, hemorrhage, nerve injuries, bruises, elevated bilirubin, as well as maternal issues of soft tissue injuries. We discussed that traction alone cannot deliver the baby, we can only assist maternal pushing efforts. The flexion point was identified 3 cm anterior of the posterior fontanelle. Upon maternal sensation of contraction, the suction was initiated to the green zone and with three pushes, gentle traction in the axis of descent was performed. Suction was decreased between contractions. After several contractions, the vacuum had absorbed some amniotic fluid and appeared not true decreased suction, so we paused the procedure to get a new vacuum device. Upon resumption of the procedure, she made good descent with pushing and the vacuum was continued until large count was noted, then removed. In total, 1 pop-off was noted. Upon maternal pushing the head was delivered atraumatically followed by the anterior shoulder, posterior shoulder, then the remainder of the 's body. A male was delivered with APGARS of 8 at 1 minute and 9 at 5 minutes. The infant was placed on its mother's chest . After the cord finished pulsating, the umbilical cord was clamped times two and cut. Later in the process, the did require a short course of suctioning for grunting; please see pediatrics note for further details. The placenta delivered intact with three vessel cord. Placenta was not sent to pathology. Thirty units of Pitocin were added to the IV fluid and allowed to run freely. Uterine massage was performed until uterus was deemed firm. Upon inspection of the perineum, third-degree midline laceration was noted and was repaired with a running suture of 3-0 Vicryl. Upon re-inspection the patient was hemostatic. Uterus again massaged and found to be firm. Needle and sponge counts were correct. Patient was stable and allowed to recover in L&D room. was stable and remained in room with mother. weight is pending at this time.
[2024-03-13] MEDS ORDERED: CALCIUM CARBONATE CHEW 500 MG TABLET PO PRN (09:45)
[2024-03-13] MEDS ORDERED: SIMETHICONE CHEW 80 MG TABLET PO PRN (09:45)
[2024-03-13] MEDS ORDERED: ONDANSETRON 4 MG/2 ML VIAL IVP PRN (09:45)
[2024-03-13] MEDS ORDERED: LACTATED RINGERS 1,000 ML IV SCH (10:00)
[2024-03-13] MEDS: IBUPROFEN 600 MG TABLET PO SCH (10:12)
[2024-03-13] MEDS: ACETAMINOPHEN 500 MG TABLET PO PRN (10:12)
[2024-03-14] MEDS: LACTATED RINGERS 500 ML IV ONE (08:37)
[2024-03-14] MEDS: WITCH HAZEL/GLYCERIN 1 PAD TOP PRN (10:36)
[2024-03-14] MEDS: HYDROCORTISONE 1% OINTMENT 28 GM TUBE TOP PRN (10:37)
[2024-03-15] MEDS: DOCUSATE SODIUM 100 MG CAPSULE PO SCH (08:12)
[2024-03-15] MEDS: CYANOCOBALAMIN 1,000 MCG/ML VIAL SUBQ SCH (08:13)
[2024-03-15 13:07] VITALS: O2SAT 98
--- NOTE | 2024-03-15 15:34 | Labor Flowsheet ---
Labor Flowsheet Datetime Report Generated by CPN: 03/15/2024 15:33 Datetime: 03/15/2024 13:02 VITAL SIGNS NBP Sys/Mary/Mean (mmHg): 124 : 66 : 80 Pulse: 75 Datetime: 03/15/2024 09:09 SpO2 (%): 97 Datetime: 03/14/2024 08:00 Stage of : Datetime: 03/13/2024 08:30 Respirations: 16 Temperature (C): 36.7 Temperature Route: Oral PAIN Pain Scale: 4 Datetime: 03/13/2024 07:30 Pain Presence: Intermittent Pain Type: Cramping Datetime: 03/13/2024 06:45 LaborFlag: Labor Datetime: 03/13/2024 06:26 Membranes Ruptured Date/Time: 03/11/2024 22:20 Membranes Rupture Method: Spontaneous Amniotic Fluid Color: Clear Amniotic Fluid Amount: Moderate Amniotic Fluid Odor: Normal Station Vacuum/Forceps Applied: +1 Datetime: 03/13/2024 06:17 Vacuum: Off Datetime: 03/13/2024 06:15 UTERINE ACTIVITY Monitor Mode: Palpation Frequency (min): 1-2 Quality: Strong Duration (sec): 40-70 Pattern: Normal: <= 5 Contractions in 10 Minutes Resting Tone (Palpate): Relaxed ASSESSMENT A Monitor Mode: External US FHR Baseline Rate : 150 Variability: Moderate 6-25 bpm Decelerations: Late; Variable Category: Category II Comments: RN continuously at bedside assessing FHR and ctx Oxygen Method: Room Air Datetime: 03/13/2024 06:00 Contraction Comments: per pt report Datetime: 03/13/2024 05:51 Pushing Position: Pushing Lithotomy Datetime: 03/13/2024 05:45 Communication Comments: RESIDENTIAL CONSTRUCTION INSTRUCTOR at bedside Datetime: 03/13/2024 05:32 Stage 2 Comments: pt puking Datetime: 03/13/2024 05:15 Accelerations: 15X15 Datetime: 03/13/2024 05:00 Monitor Interventions for UA: [place] Adjusted Datetime: 03/13/2024 04:56 I/O Interventions: Straight Cath (ml) @ 100 Datetime: 03/13/2024 04:46 COMMUNICATION Communication: RN Reviewed Strip Notification Reason: Status Update Datetime: 03/13/2024 04:30 Patient Position/Activity: Left Lateral Patient Care Comments: per pt request Datetime: 03/13/2024 03:16 MEDICATIONS Pitocin (milliunits): Increased to @ 18 Datetime: 03/13/2024 00:42 Pushing Progress: Pushing Effectively with Contractions Datetime: 03/12/2024 23:26 STAGE 2 Pushing: Coached on Pushing Datetime: 03/12/2024 23:12 VAGINAL EXAM Dilatation (cm): 9.5 Exam by: Dr. Rambo Vaginal Exam Comments: orders to start pushing Datetime: 03/12/2024 22:50 Provider Notified (Name): Dr. Ricks Datetime: 03/12/2024 22:31 Actions for Decelerations: Other Datetime: 03/12/2024 22:06 Effacement (%): 100 Station: -1 Datetime: 03/12/2024 20:01 Vaginal Bleeding: None Cervix, Consistency: Soft Datetime: 03/12/2024 19:49 Pitocin Checklist: At Least 1 Acceleration of 15 bpm x 15 Seconds in 30 Minutes or Adequate Variabi lity; No More than 1 Late Deceleration Occurred in Past 30 Minutes; No More than 2 Variable Decelerat ions > 60 Seconds in Duration and decreasing >60 bpm in 30 minutes; No More than 5 Uterine Contractio ns in 10 Minutes for any 20 Minute Interval; Uterus Palpates Soft between Contractions Datetime: 03/12/2024 19:14 MATERNAL ASSESSMENT Level of Consciousness: Alert DTR's/Clonus: DTRs 2+ Headache: Denies Breath Sounds, Left: Clear and Equal Breath Sounds, Right: Clear and Equal Nausea/Vomiting: Denies RUQ Epigastric Pain: Denies Datetime: 03/12/2024 18:32 Magnesium/Antihypertensives: Ephedrine IV (mg) @ 5 Datetime: 03/12/2024 17:54 Monitor Interventions for FHR: Ultrasound Adjusted Datetime: 03/12/2024 17:00 Epidural Procedure: Loading Dose Datetime: 03/12/2024 16:53 ANESTHESIA Anesthesia Plans: Local Datetime: 03/12/2024 16:48 Pain Assessment Comments: pt continues using nitrious while sitting for epidural Datetime: 03/12/2024 16:42 Anesthesia Comments: E.Moralez, trim technician at bedside Datetime: 03/12/2024 16:41 PROCEDURE TIME OUT Procedure Verify: Correct Patient Identity; Correct Side and Site are Marked; Accurate Procedure Co nsent Form; Agreement on Procedure to be Done; Correct Patient Position; Relevant Images and Results are Properly Labeled and Displayed Epidural Positioning: Sitting Datetime: 03/12/2024 16:31 Pain Location: Back Medication Comments: bolus started for epidural Datetime: 03/12/2024 15:55 Pain Relief Measures: Comfort Measures Pain Coping: Breathing Through Contractions Datetime: 03/12/2024 15:37 Comfort Measures: Breathing/Relaxation; Family Support Datetime: 03/12/2024 15:01 Cervix, Position: Posterior Datetime: 03/12/2024 07:00 FHR Baseline Changes: No Baseline Change Datetime: 03/12/2024 03:59 Pain Goal: 4 Datetime: 03/12/2024 00:01 PATIENT CARE IV/Blood Work: IV Started; Labs Drawn with IV Start; IV Saline Locked Datetime: 03/11/2024 23:54 Procedures: Bedside Ultrasound Done Datetime: 03/11/2024 23:49 Provider Reviewed Strip: Yes
--- NOTE | 2024-03-15 22:47 | Discharge Summary ---
"Discharge Summary Admit Date: 03/11/24 Discharge Date: 03/15/24 Discharging Provider: Yue Ray MD Code Status: Attempt Resuscitation DIAGNOSES Admission Diagnoses: term with PROM, macrocytosis from B12 deficiency Discharge Diagnoses with Status of Each Condition: term delivered b12 supplemented. HPI History of Present Illness: in elderly primagravida. 39w6d on day of admission. PROM. CONSULTS | PROCEDURES Procedures: vacuum assisted vaginal delivery HOSPITAL COURSE Hospital Course: admitted with PROM. did not want augmentation first 12 hours. started on pitocin. labor progress slow. pushed for 4+ hours and then vaccuum assisted delivery of 8 ob 8oz baby. fractured clavicle found on baby although delivery did not seem at all traumatic. post did well. breast feeding. found to have b12 deficiency. given 2 doses inpatient sq. will take at home. maybe from omeprazole impairing absorption. does not eat meat but does eat eggs daily. ALLERGIES Allergies Allergy/AdvReac Type Severity Reaction Status Date / Time No Known Drug Allergies Allergy Verified 03/14/24 14:32 MEDICATIONS Ambulatory Orders Medication Instructions Recorded Confirmed ferrous sulfate 325 mg (65 mg 325 mg PO QDAY 01/29/24 03/12/24 iron) tablet (Feosol) vits no.126-ferrous fum 1 tab PO QDAY 01/29/24 03/12/24 28 mg iron-folic acid 800 mcg tablet (Classic ) omeprazole 20 mg capsule,delayed 20 mg PO QDAY 02/29/24 03/12/24 release albuterol sulfate 90 mcg/actuation 2 inh inhalation Q4H PRN shortness 03/12/24 03/12/24 aerosol inhaler (Ventolin HFA) of breath or wheezing budesonide-formoterol HFA 160 2 puff inhalation BID 03/12/24 03/12/24 mcg-4.5 mcg/actuation aerosol inhaler lactobacillus comb no.10 20 20,000 mmu cells PO DAILY 03/12/24 03/12/24 billion cell capsule (Probiotic) Home Medications Other | Comments: motrin, tylenol. colace, miralax prn. B12 daily PHYSICAL EXAM AT DISCHARGE General Appearance: positive No acute distress Respiratory: positive No respiratory distress Cardiovascular: positive Regular rate & rhythm Abdomen: positive Non-tender Rectal: positive Hemorrhoid Extremities: positive Non-tender and No pedal edema Neurologic/Psychiatric: positive Oriented x3 LABS 03/12/24 00:01 03/12/24 00:01 FOLLOW UP Follow Up: in clinic in 1 week. TIME SPENT Time Spent in Discharge (Minutes): 20 Discharge Plan Discharge Patient Disposition: Home, Self Care Condition: Good Prescriptions: Continued budesonide-formoterol 160-4.5 mcg/actuation HFA aerosol inhaler 2 puff INHALATION BID Patient Comments: INHALE 2 PUFFS BY MOUTH TWICE DAILY Probiotic 20 billion cell capsule 20,000 mmu cells PO DAILY Rx Instructions: administer with a meal albuterol sulfate [Ventolin HFA] 90 mcg/actuation HFA aerosol inhaler 2 inh inhalation Q4H PRN (Reason: shortness of breath or wheezing) Classic 28 mg iron- 800 mcg tablet 1 tab PO QDAY ferrous sulfate [Feosol] 325 mg (65 mg iron) tablet 325 mg PO QDAY omeprazole 20 mg capsule,delayed release(DR/EC) 20 mg PO QDAY Activity Restrictions: pelvic rest for 6 weeks Activity Restrictions/Additional Instructions: OK to take motrin or aleve and tylenol as directed on the bottle. stool softener, miralax are fine Vitamin B12 sublingual tablets 1000 mcg daily. Diet: Regular Health Concerns: high fiber diet. miralax as needed. Print Language: Macedonian Patient Instructions: Vaginal, , Self Care Follow-up Care: Ana Patricio ARNP [Primary Care Provider] -"
== END 2024-03-15 15:28 | disposition home or self-care (01) | DRG 806 ==
LOC: WFO 23:04 → FBP 23:06
PROVIDERS: ADMIT Obstetrics & Gynecology; ATTEND Obstetrics & Gynecology
DX: Z79.51 Long term (current) use of inhaled steroids; Z37.0 Single live birth; O42.02 Full-term premature rupture of membranes, onset of labor within 24 hours of rupture; D75.89 Other specified diseases of blood and blood-forming organs; Z3A.39 39 weeks gestation of pregnancy; J45.909 Unspecified asthma, uncomplicated; E53.8 Deficiency of other specified B group vitamins; Z79.899 Other long term (current) drug therapy; O99.52 Diseases of the respiratory system complicating childbirth; O75.89 Other specified complications of labor and delivery; O76 Abnormality in fetal heart rate and rhythm complicating labor and delivery; O99.12 Other diseases of the blood and blood-forming organs and certain disorders involving the immune mechanism complicating childbirth; O70.1 Second degree perineal laceration during delivery; O63.1 Prolonged second stage (of labor); R03.0 Elevated blood-pressure reading, without diagnosis of hypertension